=== PATIENT | male | born 1955 | race Caucasian/White ===

== ENCOUNTER 2016-12-26 00:21 | Emergency (ER) | payer OTHER ==
[~2016-12-26] VITALS: Ht 179.1 cm; Wt 113.6 kg
[2016-12-26 00:24] VITALS: BP 143/97; PULSE 85; RESP 16; O2SAT 96
--- NOTE | 2016-12-26 00:37 | ED.REPORT ---
HPI- Male Date of Service Dec 26, 2016 ED Provider: Dr. Petr Moreno M.D. The patient is a 61 year old male with a medical history including hypertension who presents to the ED with left testicular swelling onset this evening. The patient also reports mild left testicular pain and left lower quadrant abdominal pain, exacerbated with movement. He denies fever, chills, injury/ trauma to the area, or other symptoms. The patient has never had similar symptoms in the past. Nursing Notes Stated Complaint: SWOLLEN TESTICLES Chief Complaint: General Complaint Nursing Notes Reviewed: Yes Allergies: Coded Allergies: Sulfa (Sulfonamide Antibiotics) (Verified Allergy, Intermediate, 08/12/15) Scheduled Doxycycline Monohyd (Doxycycline Monohyd) 100 Mg Tablet 100 MG PO BID General Time Seen by MD: 00:36 Chief Complaint Testicle swollen left Hx Obtained From: Patient Arrived By: Walk-in Onset Occurred: 5 - 8 hours ago Symptom Duration: Since onset Location: : LLQ: Testicle left Quality: Painful Severity: Current: Moderate Severity: Maximum: Moderate Exacerbated by: Movement Pertinent Negative: Relieved by nothing Related History: Reports: Cancer Recent Healthcare: No recent doctor visit Similar Sx Previous: No Past Medical History Past Medical History HTN- 2013 R meniscal tear Basal cell carcinoma with removal- 2014 Hyperlipidemia NSTEMI Reports: GERD Past Surgical History Basal cell carcinoma removal Smoking History Former Smoker Social History Alcohol Use: 1-3 per week Drug Use: Denies drug use Other Social History: Ambulatory Status Independent Review of Systems Constitutional: Denies: Chills, Fever GI: Reports: Abdominal pain (LLQ), Denies: Diarrhea, Vomiting Male: Reports Testicular pain (Left ), Reports Testicular swelling (Left) Complete sys rev & neg: except as marked. Respiratory: Denies: Non-productive cough, Shortness of breath Physical Exam Initial Vital Signs Vital Signs (First) Date Time Temp Pulse Resp B/P Pulse Ox O2 Delivery O2 Flow Rate FiO2 12/26/ 00:24 36.9 85 16 143/97 96 Room Air Initial VS: Reviewed Head / Eyes: Atraumatic, Normocephalic ENT: Conjunctiva normal, No scleral icterus Neck: Supple, Full range of motion Skin: Warm, Dry, No cyanosis Neurologic: Alert, Oriented, Nonfocal Psychiatric: Mood/affect normal, Behavior normal, Normal thought content Male Genitourinary: Atraumatic, Cremasteric reflex NL, No hernia Testes / Epidid / Scrotum: Positive: Scrotum erythema, Testis enlarged L, Testis tender L (Proximal end of testicle consistent with epididymitis), Negative: Testis enlarged R, Testis tender R General/Constitutional: Awake, Alert, No acute distress Interpretation & Diagnostics US SCROTUM: CONCLUSION: Findings of left epididymo-orchitis. No findings of testicular torsion identified. Bilateral hydroceles, larger on the left. Report was transmitted to the ED by radiologist Mukund Daly M.D. at 2016 - 3:59:21 AM PDT Re-Eval/Medical Decision Med Decision/Clinical Course 61-year-old with testicular pain and swelling proves to have findings consistent with epididymitis. There is also a moderate-sized hydrocele present. He is allergic to sulfa drugs. Doxycycline given as an alternative. Discharged in stable condition for follow-up with PCP. Testicular ultrasound also reveals a moderate hydrocele, which may not be an issue once his infection has subsided. Will follow up with PCP and urology as needed. Source of Hx: Old records Re-Evaluation/Progress : Time of Eval: 03:12 Patient Status: Condition improved Re-Evaluation/Progress Note: Discussed with patient US results, diagnosis, and plan for discharge. Follow-up and return to the ER instructions given. Patient agrees with plan for care and all questions were addressed. Counseled Regarding: Diagnosis, Need for follow-up, When/why to return to ED Discharge & Departure Impression: Primary Impression: Epididymitis Additional Impression: Hydrocele Disposition: Home Discharge Condition All VS Reviewed: Yes Condition: Improved Patient Instructions: Epididymitis (ED) Additional Instructions: Begin doxycycline twice daily for ten days. Wear your underwear to keep your testicles firmly against your lower abdomen. Sit in a hot bathtub for ten minutes three times daily. Follow-up with your doctor in the office. There is moderate hydrocele in the area, accounting for some of the swelling and bulk. This is a benign problem generally, and can be followed up by your doctor. Referrals: Declan Erazo MD (PCP) Scribe Attestation Portions of this note were transcribed by Raissa Castrejon. I, Dr. Moreno, personally performed the history, physical exam, and medical decision-making; I reviewed and confirmed the accuracy of the information in the transcribed note. Signed by: Donald Sierra, 12/26/2016, 04:15 copies to: Declan Erazo MD, Christopher W MD Dec 26, 2016 00:37 RAISSA CASTREJON Dec 26, 2016 00:44
[2016-12-26] MEDS ORDERED: DOXY-232 PO (03:11)
--- NOTE | 2016-12-26 07:52 | DRSVH ---
PROCEDURE: US TESTICULAR SONOGRAM WITH DOPPLER INDICATIONS: 61 year-old male with swollen left testicle. TECHNIQUE: Real-time scanning was performed of the scrotum and testicles, with image documentation. Color and p ulse Doppler interrogation was performed of both testicles. COMPARISON: None. FINDINGS: Preliminary interpretation rendered by [facility]. Right: Testicle is normal in size at 4.1 x 2.3 x 2.5 cm, and homogenous in echotexture. Epididymis is normal in overall size and morphology. There is small hydrocele; no varicoceles. Overlying scrota l skin is normal in thickness. Left: Testicle is normal in size at 3.9 x 2.5 x 2.5 cm, and homogeneous in echotexture. Epididymis is normal in overall size and morphology. There is moderate hydrocele; no varicoceles. Overlying scr otal skin is normal in thickness. Doppler: Color and pulse Doppler demonstrate normal arterial and venous flow in both testicles, rela tively increased on the left. IMPRESSION: 1. Asymmetric hypervascularity within the left testicle may represent sequelae of epididymo-orchitis versus intermittent torsion in the absence of any clinical signs of infection. 2. Nonspecific small right and moderate left scrotal hydroceles. Dictated by: Surjit Shanks M.D. on 12/26/2016 at 7:46 Approved by: Surjit Shanks M.D. on 12/26/2016 at 7:50
== END 2016-12-26 03:32 | disposition home or self-care (01) ==
LOC: SED 00:21
DX: N45.1 Epididymitis (principal); N43.3 Hydrocele, unspecified; R10.32 Left lower quadrant pain; I10 Essential (primary) hypertension; E78.5 Hyperlipidemia, unspecified; K21.9 Gastro-esophageal reflux disease without esophagitis; Z87.891 Personal history of nicotine dependence; Z88.2 Allergy status to sulfonamides